=== PATIENT | male | born 1995 | race Two or more races ===

== ENCOUNTER 2016-06-01 14:03 | Emergency (ER) | payer OTHER ==
[~2016-06-01] VITALS: Ht 180.3 cm; Wt 82.6 kg
[~2016-06-01 14:03] MED LIST: AUGMENTIN 875-1 EAC1 ORAL; CEPHALEXIN500 MG ORAL; DOXYCYCLINE MO100 MG ORAL; IBUPROFEN600 MG ORAL; VIBRAMYCIN100 MG ORAL
[2016-06-01] MEDS ORDERED: CEPHALEXIN500 MG ORAL (14:59)
[2016-06-01 15:08] VITALS: BP 115/74
--- NOTE | 2016-06-02 23:00 | Emergency Room Report ---
History of Present Illness General Chief Complaint: Skin Rash/Abscess Source: Patient Present Illness HPI The patient is a 20-year-old male presenting with possible insect bite to the left elbow. The patient states that he noticed redness and pain to the area this morning. The patient did not see any insects. Pain is described as an 8/ 10 dull ache which does not radiate. Pain worse with touch and movement of the elbow. The patient denies any other symptoms including fever, chills, N, V, fatigue, CP, SOB Allergies: Coded Allergies: No Known Allergies (Unverified , 07/03/15) Patient History Past Medical History: see triage record Pertinent Family History: none Reviewed Nursing Documentation: PMH: Agreed, PSxH: Agreed Nursing Documentation-PMH Past Medical History: No Stated History Review of Systems All Other Systems: negative except mentioned in HPI Physical Exam Vital Signs Date Time Temp Pulse Resp B/P Pulse Ox O2 Delivery O2 Flow Rate FiO2 06/01/16 15:08 97.7 14 115/74 98 Room Air 06/01/16 15:08 73 Sp02 EP Interpretation: reviewed, normal General Appearance: no apparent distress, alert, GCS 15, non-toxic Head: normocephalic, atraumatic Eyes: bilateral eye PERRL, bilateral eye normal inspection Musculoskeletal: digits/nails normal, normal range of motion, tender - over olecranon Neurologic: alert, oriented x3, responsive, motor strength/tone normal, sensory intact, speech normal Psychiatric: judgement/insight normal, memory normal, mood/affect normal, no suicidal/homicidal ideation Skin: normal color, no rash, well hydrated, normal turgor, other - There is erythema over the olecranon. Hot to touch Lymphatic: no adenopathy Medical Decision Making PA Attestation Dr. Dickinson is my supervising physician. Patient management was discussed with my supervising physician Diagnostic Impression: Primary Impression: Cellulitis ER Course The patient is a 20-year-old male presenting with possible insect bite to the left elbow. Ddx considered include but not limited to insect bite, contact dermatitis, eczema, cellulitis Physical exam: Vitals within normal limits. Afebrile. No apparent distress Left elbow: There is 4 cm in diameter erythema over the olecranon. No fluctuance. Tender to palpation. The patient will be discharged home with a prescription for Keflex. ER precautions are given Last Vital Signs Date Time Temp Pulse Resp B/P Pulse Ox O2 Delivery O2 Flow Rate FiO2 06/01/16 15:08 73 14 115/74 98 Room Air 06/01/16 15:08 97.7 Status: improved Disposition: HOME, SELF-CARE Condition: Improved Scripts Cephalexin* (KEFLEX*) 500 Mg Capsule 500 MG ORAL EVERY 12 HOURS, #20 CAP 0 Refills Prov: BRANDY DOSHI 06/01/16 Referrals: [facility] (PCP) Patient Instructions: Cellulitis Additional Instructions: I discussed my findings with the patient. All questions and concerns have been answered. Treatment and medication compliance have been addressed. I advised the patient that they need to follow up with PMD in 3-5 days. Return to ED if symptoms worsen, new symptoms arise, or if needed for any reason. Patient verbalized understanding of discharge instructions. BRANDY DOSHI Jun 02, 2016 23:00
== END 2016-06-01 15:08 | disposition home or self-care (01) ==
LOC: EMR 14:55
DX: L03.114 Cellulitis of left upper limb (principal)
CPT/HCPCS: 10060

== ENCOUNTER 2016-06-01 22:32 | Emergency (ER) | payer OTHER ==
[~2016-06-01] VITALS: Ht 180.3 cm; Wt 86.2 kg
[2016-06-01] MEDS ORDERED: Vancomycin 1.5 GM in D5W 325 ML IVPB SCH (23:00)
[2016-06-01] MEDS ORDERED: HYDROmorphone 1mg/ml Carpuject IVP ONE (23:00)
[2016-06-01] MEDS ORDERED: Vancomycin 1gm inj IVPB ONE ×2 (23:22→23:23)
[2016-06-01] MEDS ORDERED: Vancomycin 1.5gm/D5W 300ml 300 ML IVPB ONE (23:28)
[2016-06-01 23:33] LABS: BASOPHILS % (AUTO) 0.8 % (0.0-2.0); EOSINOPHILS % (AUTO) 2.7 % (0.0-3.0); LYMPHOCYTES % (AUTO) 20.4 % (20.0-45.0); MEAN CORPUSCULAR HEMOGLOBIN 33.3 PG (27.0-31.0); MEAN CORPUSCULAR HGB CONC 36.5 G/DL (32.0-36.0); MEAN CORPUSCULAR VOLUME 91 FL (80-99); MEAN PLATELET VOLUME 11.7 FL (6.5-10.1); MONOCYTES % (AUTO) 7.5 % (1.0-10.0); NEUTROPHILS % (AUTO) 68.7 % (45.0-75.0); PLATELET COUNT 158 K/UL (150-450); RED BLOOD COUNT 5.12 M/UL (4.70-6.10); RED CELL DISTRIBUTION WIDTH 12.1 % (11.6-14.8); WHITE BLOOD COUNT 13.5 K/UL (4.8-10.8)
[2016-06-01 23:41] LABS: ANION GAP 14 (5-15); CALCIUM 9.7 mg/dL (8.6-10.2); CARBON DIOXIDE 26 mEQ/L (20-30); CHLORIDE 100 mEQ/L (98-107); CREATININE 0.8 mg/dL (0.7-1.2); GLOMERULAR FILTRATION RATE > 60 mL/min (>60); HEMOLYSIS 7; POTASSIUM 3.7 mEQ/L (3.4-4.9); SODIUM 140 mEQ/L (135-145)
--- NOTE | 2016-06-01 23:51 | Emergency Room Report ---
History of Present Illness General Chief Complaint: Skin Rash/Abscess Source: Patient Present Illness HPI This is a 20-year-old male who is right-hand dominant. He presents with left elbow pain. He had a small pimple on his left elbow. He tried to pop it. This was 3 days ago. Today he had redness and has subjective fever and chills. He came here and was prescribed Keflex. He said he took 2 doses already. Now pain is much worse. Redness to the same but swelling is worse. Cancer denies elbow. Pain is 10 out of 10. Denies any other complaint. No drainage. Allergies: Coded Allergies: No Known Allergies (Unverified , 07/03/15) Patient History Past Medical History: see triage record, old chart reviewed Past Surgical History: none Pertinent Family History: none Social History: Denies: smoking Immunizations: other Reviewed Nursing Documentation: PMH: Agreed, PSxH: Agreed Nursing Documentation-PMH Past Medical History: No Stated History Review of Systems Constitutional: Reports: chills, fever Eye: Denies: blurred vision, eye pain ENT: Denies: ear pain, nose congestion, throat swelling Respiratory: Denies: cough, shortness of breath Cardiovascular: Denies: chest pain, palpitations Gastrointestinal: Denies: abdominal pain, diarrhea, nausea, vomiting Musculoskeletal: Reports: joint pain, Denies: back pain Skin: Denies: rash Neurological: Denies: headache, numbness Endocrine: Denies: increased thirst, increased urine Hematologic/Lymphatic: Denies: easy bruising All Other Systems: negative except mentioned in HPI Physical Exam Vital Signs Date Time Temp Pulse Resp B/P Pulse Ox O2 Delivery O2 Flow Rate FiO2 06/01/16 22:42 97.7 115 17 132/79 98 Room Air vitals with tachycardia Sp02 EP Interpretation: reviewed, normal General Appearance: well appearing, alert, mild distress Head: normocephalic, atraumatic Eyes: bilateral eye EOMI, bilateral eye PERRL ENT: hearing grossly normal, normal pharynx Neck: full range of motion, supple, no meningismus Respiratory: chest non-tender, lungs clear, normal breath sounds Cardiovascular #1: regular rate, rhythm, no murmur Gastrointestinal: normal bowel sounds, non tender, no mass, no organomegaly, no bruit, non-distended Musculoskeletal: back normal, gait/station normal, other - Left elbow: There is a small fluctuant area of the olecranon. About 1 cm. Has a scab centrally. He has surrounding erythema measuring about 5 cm. Unable to extend his elbow to 180. Warm to the touch. Neurologic: alert, oriented x3 Psychiatric: mood/affect normal Skin: warm/dry Procedures Incision and Drainage Incision and Drainage : Consent: Verbal Site: Left elbow Blade Size: 11 I & D Procedure: betadine prep, sterile drapes applied, sterile dressing applied, gauze wick placed Wound Location: upper extremity Anesthesia: Lidocaine w/ Epi Volume Anesthetic (ccs): 2 Patient Tolerated: Well Complications: None Progress Area clean with Betadine. Local anesthetic 1% lidocaine with epinephrine. I made a 2 cm incision. There was small amount of discharge. This was about 1 mL. Wound irrigated and packed. Patient tolerated procedure without any problem. He is able to straighten her elbow fully. Medical Decision Making Diagnostic Impression: Primary Impression: Cellulitis of left elbow Additional Impression: Abscess, elbow ER Course Patient present with abscess and cellulitis of the elbow. He felt outpatient therapy. Most likely MRSA in resistant to Keflex. After I&D he is able to straighten his elbow fully. This decreased the risks of septic joint. Antibiotic started. Because he failed outpatient therapy he warrant admission versus transfer for further IV antibiotics. Laboratory Tests Test 06/01/16 23:15 White Blood Count 13.5 K/UL (4.8-10.8) H Red Blood Count 5.12 M/UL (4.70-6.10) Hemoglobin 17.1 G/DL (14.2-18.0) Hematocrit 46.7 % (42.0-52.0) Mean Corpuscular Volume 91 FL (80-99) Mean Corpuscular Hemoglobin 33.3 PG (27.0-31.0) H Mean Corpuscular Hemoglobin Concent 36.5 G/DL (32.0-36.0) H Red Cell Distribution Width 12.1 % (11.6-14.8) Platelet Count 158 K/UL (150-450) Mean Platelet Volume 11.7 FL (6.5-10.1) H Neutrophils (%) (Auto) 68.7 % (45.0-75.0) Lymphocytes (%) (Auto) 20.4 % (20.0-45.0) Monocytes (%) (Auto) 7.5 % (1.0-10.0) Eosinophils (%) (Auto) 2.7 % (0.0-3.0) Basophils (%) (Auto) 0.8 % (0.0-2.0) Sodium Level Pending Potassium Level Pending Chloride Level Pending Carbon Dioxide Level Pending Blood Urea Nitrogen Pending Creatinine Pending Estimat Glomerular Filtration Rate Pending Glucose Level Pending Calcium Level Pending Lab Results Impression labs with leukocytosis Other X-Ray Diagnostic Results Other X-Ray Diagnostic Results : X-Ray Ordered: X-ray elbow, left Date: Jun 01, 2016 Time: 23:51 EP Interpretation: Yes Findings: no fractures, no dislocation, no soft tissue swelling Number of Views: 3 Last Vital Signs Date Time Temp Pulse Resp B/P Pulse Ox O2 Delivery O2 Flow Rate FiO2 06/01/16 22:42 97.7 115 17 132/79 98 Room Air Status: improved Disposition: XFER SHT-TRM HOSP Condition: Serious Referrals: [facility]ERR[facility] (PCP) YOSELIN GARCES M.D. Jun 01, 2016 23:51
[2016-06-02] MEDS ORDERED: HYDROmorphone 1mg/ml Carpuject IVP ONE
[2016-06-02 00:16] VITALS: BP 136/78
[2016-06-02 01:33] VITALS: BP 134/76
--- NOTE | 2016-06-02 13:45 | Diagnostic Imaging Report ---
Indications:Pain Technique: Three or 4 views of the left elbow Comparison: None Findings:No effusion. No acute fractures. No dislocations. Joint spaces are preserved Impression:Negative
== END 2016-06-02 01:34 | disposition short-term general hospital (02) ==
LOC: EMR 23:08
DX: L03.114 Cellulitis of left upper limb (principal); L02.414 Cutaneous abscess of left upper limb
CPT/HCPCS: 10060; 36415; 73080; 80048; 85025; 87070; 87181; 87205; 96374; 96375; 99284; J1170; J2405; J3370

== ENCOUNTER 2016-07-25 00:40 | Emergency (ER) | payer MEDICAID, OTHER ==
[~2016-07-25] VITALS: Ht 180.3 cm; Wt 82.6 kg
[2016-07-25] MEDS ORDERED: Ketorolac 30mg Inj IV ONE (01:15)
[2016-07-25 01:25] LABS: APPEARANCE,URINE CLEAR; KETONES,URINE 4+ (NEGATIVE); LEUKOCYTE ESTERASE ,URINE NEGATIVE (NEGATIVE); NITRITE,URINE NEGATIVE (NEGATIVE); PH,URINE 5 (4.5-8.0); PROTEIN,URINE 1+ (NEGATIVE); UROBILINOGEN,URINE NORMAL MG/DL (0.0-1.0)
[2016-07-25 01:29] LABS: BASOPHILS % (AUTO) 0.6 % (0.0-2.0); EOSINOPHILS % (AUTO) 0.3 % (0.0-3.0); LYMPHOCYTES % (AUTO) 8.5 % (20.0-45.0); MEAN CORPUSCULAR HEMOGLOBIN 30.7 PG (27.0-31.0); MEAN CORPUSCULAR HGB CONC 34.7 G/DL (32.0-36.0); MEAN CORPUSCULAR VOLUME 89 FL (80-99); MONOCYTES % (AUTO) 9.1 % (1.0-10.0); NEUTROPHILS % (AUTO) 81.5 % (45.0-75.0); PLATELET COUNT 139 K/UL (150-450); RED BLOOD COUNT 5.78 M/UL (4.70-6.10); RED CELL DISTRIBUTION WIDTH 11.8 % (11.6-14.8)
[2016-07-25 01:37] LABS: BACTERIA,URINE FEW /HPF; MUCUS,URINE MODERATE /LPF (NONE/OCC); SQUAMOUS EPITHELIAL CELL,UR FEW /LPF (NONE/OCC)
[2016-07-25 01:40] LABS: ANION GAP 17 (5-15); CALCIUM 8.6 mg/dL (8.6-10.2); CARBON DIOXIDE 25 mEQ/L (20-30); CHLORIDE 91 mEQ/L (98-107); CREATININE 0.9 mg/dL (0.7-1.2); GLOMERULAR FILTRATION RATE > 60 mL/min (>60); HEMOLYSIS 7; POTASSIUM 3.5 mEQ/L (3.4-4.9); SODIUM 133 mEQ/L (135-145)
[2016-07-25 01:57] VITALS: BP 124/71
[2016-07-25] MEDS ORDERED: IBUPROFEN600 MG ORAL (02:01)
[2016-07-25] MEDS ORDERED: ZOFRAN4 MG ORAL (02:01)
--- NOTE | 2016-07-25 02:02 | Emergency Room Report ---
History of Present Illness General Chief Complaint: Abdominal Pain Source: Patient Present Illness HPI Is a 20-year-old male with no past medical history. He presents with chief complaint of abdominal pain with nausea vomiting and diarrhea. Onset yesterday. Unable to keep anything down. No fever or chills. Vomiting is nonbloody nonbilious. Diarrhea is watery. Allergies: Coded Allergies: No Known Allergies (Unverified , 07/03/15) Patient History Past Medical History: none Past Surgical History: none Pertinent Family History: none Social History: Denies: smoking Immunizations: other Reviewed Nursing Documentation: PMH: Agreed, PSxH: Agreed Nursing Documentation-PMH Past Medical History: No Stated History Review of Systems Eye: Denies: blurred vision, eye pain ENT: Denies: ear pain, nose congestion, throat swelling Respiratory: Denies: cough, shortness of breath Cardiovascular: Denies: chest pain, palpitations Gastrointestinal: Reports: abdominal pain, diarrhea, nausea, vomiting Musculoskeletal: Denies: back pain, joint pain Skin: Denies: rash Neurological: Denies: headache, numbness Endocrine: Denies: increased thirst, increased urine Hematologic/Lymphatic: Denies: easy bruising All Other Systems: negative except mentioned in HPI Physical Exam Vital Signs Date Time Temp Pulse Resp B/P Pulse Ox O2 Delivery O2 Flow Rate FiO2 07/25/16 00:53 98.1 111 20 130/76 99 Room Air vitals with tachycardia Sp02 EP Interpretation: reviewed, normal General Appearance: well appearing, no apparent distress, alert Head: normocephalic, atraumatic Eyes: bilateral eye EOMI, bilateral eye PERRL ENT: hearing grossly normal, normal pharynx Neck: full range of motion, supple, no meningismus Respiratory: chest non-tender, lungs clear, normal breath sounds Cardiovascular #1: regular rate, rhythm, no murmur Gastrointestinal: normal bowel sounds, no mass, no organomegaly, no bruit, non- distended, tenderness - Mild Musculoskeletal: back normal, gait/station normal, normal range of motion Neurologic: alert, oriented x3 Psychiatric: mood/affect normal Skin: warm/dry Medical Decision Making Diagnostic Impression: Primary Impression: Abdominal pain of unknown etiology Additional Impressions: Nausea vomiting and diarrhea Dehydration ER Course Patient with abdominal pain. Pain better now. He is no longer vomiting. He is little dehydrated. [place] better now. no evidence of obstruction or acute abdomen. We'll discharge him. Lab Results Impression labs unremarkable Last Vital Signs Date Time Temp Pulse Resp B/P Pulse Ox O2 Delivery O2 Flow Rate FiO2 07/25/16 00:53 98.1 111 20 130/76 99 Room Air Status: improved Disposition: HOME, SELF-CARE Condition: Stable Scripts Ibuprofen* (MOTRIN*) 600 Mg Tablet 600 MG ORAL Q6H Y for For Pain, #20 TAB Prov: YOSELIN GARCES M.D. 07/25/16 Ondansetron (Zofran) 4 Mg Tablet 4 MG ORAL Q6H Y for Nausea & Vomiting, #10 TAB 0 Refills Prov: YOSELIN GARCES M.D. 07/25/16 Patient Instructions: Viral Gastroenteritis, Adult Additional Instructions: Followup with your DrJoanie in 2-3 days. Return if symptom worsen. YOSELIN GARCES M.D. Jul 25, 2016 02:02
[2016-07-25 02:16] VITALS: BP 124/71
[2016-07-26] MEDS ORDERED: NKM (01:18)
[2016-07-26] MEDS ORDERED: ZOFRAN ODT4 MG ORAL (03:03)
[2016-07-26] MEDS ORDERED: BENTYL10 MG ORAL (03:03)
[2016-07-26] MEDS ORDERED: RANITIDINE HCL150 MG ORAL (03:03)
== END 2016-07-25 02:16 | disposition home or self-care (01) ==
LOC: EMR 02:14
DX: R10.9 Unspecified abdominal pain (principal); R11.2 Nausea with vomiting, unspecified; E86.0 Dehydration
CPT/HCPCS: 36415; 80048; 81003; 85025; 96374; 96375; 99284; J1885; J2405

== ENCOUNTER 2016-07-25 23:59 | Emergency (ER) | payer MEDICAID ==
[~2016-07-25] VITALS: Ht 180.3 cm; Wt 82.6 kg
[~2016-07-25 23:59] MED LIST changes: +ZOFRAN4 MG ORAL
[2016-07-26] MEDS ORDERED: Morphine Sulfate 4mg/ml Inj IVP ONE ×2 (00:30→03:15)
[2016-07-26 00:39] LABS: APPEARANCE,URINE CLEAR; KETONES,URINE 3+ (NEGATIVE); LEUKOCYTE ESTERASE ,URINE 1+ (NEGATIVE); NITRITE,URINE NEGATIVE (NEGATIVE); PH,URINE 6 (4.5-8.0); PROTEIN,URINE 1+ (NEGATIVE); UROBILINOGEN,URINE NORMAL MG/DL (0.0-1.0)
[2016-07-26 00:50] LABS: BASOPHILS % (AUTO) 1.6 % (0.0-2.0); EOSINOPHILS % (AUTO) 1.4 % (0.0-3.0); MEAN CORPUSCULAR HEMOGLOBIN 30.8 PG (27.0-31.0); MEAN CORPUSCULAR HGB CONC 35.3 G/DL (32.0-36.0); MEAN CORPUSCULAR VOLUME 87 FL (80-99); MEAN PLATELET VOLUME 10.8 FL (6.5-10.1); MONOCYTES % (AUTO) 15.2 % (1.0-10.0); NEUTROPHILS % (AUTO) 61.8 % (45.0-75.0); PLATELET COUNT 132 K/UL (150-450); RED BLOOD COUNT 5.07 M/UL (4.70-6.10); RED CELL DISTRIBUTION WIDTH 11.5 % (11.6-14.8); WHITE BLOOD COUNT 6.1 K/UL (4.8-10.8)
[2016-07-26 01:07] LABS: ALANINE AMINOTRANSFERASE 31 U/L (3-41); ALBUMIN/GLOBULIN RATIO 1.4 (1.0-2.7); ANION GAP 17 (5-15); ASPARTATE AMINO TRANSFERASE 21 U/L (5-40); CALCIUM 8.4 mg/dL (8.6-10.2); CARBON DIOXIDE 24 mEQ/L (20-30); CHLORIDE 95 mEQ/L (98-107); CREATININE 0.8 mg/dL (0.7-1.2); GLOMERULAR FILTRATION RATE > 60 mL/min (>60); HEMOLYSIS 7; LIPASE 29 U/L (< 60); POTASSIUM 3.3 mEQ/L (3.4-4.9); SODIUM 136 mEQ/L (135-145); TOTAL PROTEIN 6.5 g/dL (6.6-8.7)
[2016-07-26 01:18] VITALS: BP 133/75
[2016-07-26] MEDS ORDERED: NKM (01:18)
[2016-07-26 01:32] LABS: BACTERIA,URINE FEW /HPF; MUCUS,URINE MODERATE /LPF (NONE/OCC); RBC,URINE 0-2 /HPF (0 - 0); SQUAMOUS EPITHELIAL CELL,UR FEW /LPF (NONE/OCC)
[2016-07-26] MEDS ORDERED: ZOFRAN ODT4 MG ORAL (03:03)
[2016-07-26] MEDS ORDERED: BENTYL10 MG ORAL (03:03)
[2016-07-26] MEDS ORDERED: RANITIDINE HCL150 MG ORAL (03:03)
[2016-07-26 03:12] VITALS: BP 115/75
[2016-07-26] MEDS ORDERED: Ketorolac 30mg Inj IV ONE (03:15)
[2016-07-26 03:16] VITALS: BP 115/75
--- NOTE | 2016-07-26 03:24 | Emergency Room Report ---
History of Present Illness General Chief Complaint: Abdominal Pain Source: Patient Present Illness HPI 20-year-old male presents ED for evaluation. Patient is here complaining of abdominal pain with vomiting. States symptoms started last Tuesday. Was here last night for similar presentation. Had workup and given pain medications and subsequently discharged. Patient is here because pain is persisting. Pain is sharp. 10 Out of 10. Noted to the right side of abdomen. Denies fevers or chills. Denies chest pain or shortness of breath. Denies sick contacts or recent travel. No aggravating relieving factors. Denies any other associated symptom Allergies: Coded Allergies: No Known Allergies (Unverified , 07/03/15) Patient History Past Medical History: none Past Surgical History: none Pertinent Family History: none Social History: Denies: alcohol use, drug use, smoking Immunizations: UTD Reviewed Nursing Documentation: PMH: Agreed, PSxH: Agreed Nursing Documentation-PMH Past Medical History: No Stated History Review of Systems All Other Systems: negative except mentioned in HPI Physical Exam Vital Signs Date Time Temp Pulse Resp B/P Pulse Ox O2 Delivery O2 Flow Rate FiO2 07/26/16 00:05 97.9 74 18 116/73 100 Room Air Sp02 EP Interpretation: reviewed, normal General Appearance: no apparent distress, alert, GCS 15, non-toxic Head: normocephalic Eyes: bilateral eye PERRL, bilateral eye normal inspection ENT: hearing grossly normal, normal pharynx, no angioedema, normal voice Neck: normal inspection Respiratory: normal inspection Cardiovascular #1: normal inspection Gastrointestinal: normal bowel sounds, soft, non-distended, no guarding, no rebound, tenderness - Right sided Rectal: deferred Genitourinary: no CVA tenderness Musculoskeletal: normal inspection Neurologic: alert, oriented x3, responsive, motor strength/tone normal, sensory intact, speech normal Psychiatric: normal inspection Skin: normal inspection Lymphatic: normal inspection Medical Decision Making Diagnostic Impression: Primary Impression: Gastroenteritis and colitis, viral ER Course Hospital Course 20-year-old male presents to ED complaining of right-sided abdominal pain and vomiting Differential diagnosis includes-appendicitis, cholecystitis, small bowel obstruction, gastritis, Clinical course Patient placed on stretcher. After initial history and physical I ordered labs , IV fluids, pain medications and CT scan Labs - no leukocytosis, electrolytes okay, LFTs normal, UA unremarkable CT scan shows no acute pathology, no evidence of appendicitis. Some inflammation surrounding the ascending colon likely colitis Reassurance given to the patient. Patient tolerating by mouth challenge in ED I feel this is a highly complex case requiring extensive working including EKG/ Rhythm strip, Xray/CT/US, Blood/urine lab work, repeat exams while in ED, and administration of strong opiates/narcotics for pain control, admission to hospital or close patient follow up. Diagnosis - gastroenteritis and colitis viral Stable and discharged to home prescription for Zantac, Bentyl, Zofran. Followup with PMD. Return to ED if symptoms recur or worsen Labs Test 07/26/16 00:17 07/26/16 00:35 Urine Color Yellow Urine Appearance Clear Urine pH 6 (4.5-8.0) Urine Specific [place] 1.015 (1.005-1.035) Urine Protein 1+ (NEGATIVE) Urine Glucose (UA) Negative (NEGATIVE) Urine Ketones 3+ (NEGATIVE) Urine Occult Blood Negative (NEGATIVE) Urine Nitrite Negative (NEGATIVE) Urine Bilirubin Negative (NEGATIVE) Urine Urobilinogen Normal MG/DL (0.0-1.0) Urine Leukocyte Esterase 1+ (NEGATIVE) Urine RBC 0-2 /HPF (0 - 0) Urine WBC 5-10 /HPF (0 - 0) Urine Squamous Epithelial Cells Few /LPF (NONE/OCC) Urine Bacteria Few /HPF (NONE) Urine Mucus Moderate /LPF (NONE/OCC) White Blood Count 6.1 K/UL (4.8-10.8) Red Blood Count 5.07 M/UL (4.70-6.10) Hemoglobin 15.6 G/DL (14.2-18.0) Hematocrit 44.3 % (42.0-52.0) Mean Corpuscular Volume 87 FL (80-99) Mean Corpuscular Hemoglobin 30.8 PG (27.0-31.0) Mean Corpuscular Hemoglobin Concent 35.3 G/DL (32.0-36.0) Red Cell Distribution Width 11.5 % (11.6-14.8) Platelet Count 132 K/UL (150-450) Mean Platelet Volume 10.8 FL (6.5-10.1) Neutrophils (%) (Auto) 61.8 % (45.0-75.0) Lymphocytes (%) (Auto) 20.0 % (20.0-45.0) Monocytes (%) (Auto) 15.2 % (1.0-10.0) Eosinophils (%) (Auto) 1.4 % (0.0-3.0) Basophils (%) (Auto) 1.6 % (0.0-2.0) Sodium Level 136 mEQ/L (135-145) Potassium Level 3.3 mEQ/L (3.4-4.9) Chloride Level 95 mEQ/L (98-107) Carbon Dioxide Level 24 mEQ/L (20-30) Anion Gap 17 (5-15) Blood Urea Nitrogen 9 mg/dL (7-23) Creatinine 0.8 mg/dL (0.7-1.2) Estimat Glomerular Filtration Rate > 60 mL/min (>60) Glucose Level 113 mg/dL (74-106) Calcium Level 8.4 mg/dL (8.6-10.2) Total Bilirubin 0.3 mg/dL (0.0-1.2) Aspartate Amino Transf (AST/SGOT) 21 U/L (5-40) Alanine Aminotransferase (ALT/SGPT) 31 U/L (3-41) Alkaline Phosphatase 41 U/L (40-129) Total Protein 6.5 g/dL (6.6-8.7) Albumin 3.8 g/dL (3.5-5.2) Globulin 2.7 g/dL Albumin/Globulin Ratio 1.4 (1.0-2.7) Lipase 29 U/L (< 60) CT/MRI/US Diagnostic Results CT/MRI/US Diagnostic Results : Imaging Test Ordered: CT A/P Impression some inflammation surrounding ascending colon - likley colitis. no e/o appendicits Last Vital Signs Date Time Temp Pulse Resp B/P Pulse Ox O2 Delivery O2 Flow Rate FiO2 07/26/16 03:16 97.9 77 17 115/75 100 Room Air Status: improved Disposition: HOME, SELF-CARE Condition: Stable Scripts Ondansetron Odt* (ZOFRAN ODT*) 4 Mg Tab.rapdis 4 MG ORAL Q6H Y for Nausea & Vomiting, #30 TAB 0 Refills Prov: SANJAY JAUREGUI M.D. 07/26/16 Ranitidine Hcl* (ZANTAC*) 150 Mg Tablet 150 MG ORAL TWICE A DAY, #30 TAB Prov: SANJAY JAUREGUI M.D. 07/26/16 Dicyclomine Hcl* (BENTYL*) 10 Mg Capsule 10 MG ORAL FOUR TIMES A DAY, #20 CAP Prov: SANJAY JAUREGUI M.D. 07/26/16 Patient Instructions: Viral Gastroenteritis, Adult SANJAY JAUREGUI M.D. Jul 26, 2016 03:24
--- NOTE | 2016-07-26 11:48 | Diagnostic Imaging Report ---
Clinical Indication: Abdominal pain Technique: No oral contrast utilized, per emergency room physician request IV administration nonionic contrast. Venous phase spiral acquisition obtained through the abdomen and pelvis. Multiplanar reconstructions were generated. Total dose length product 780 mGycm. CTDIvol(s) 15 mGy Comparison: None Findings: The appendix is normal. No evidence of diverticulosis or diverticulitis. Small bowel loops are diffusely prominent, but contrast is seen all the way into the colon. No free or loculated intraperitoneal air or fluid. Distal esophagus, stomach, duodenum are unremarkable. The liver is diffusely mildly hypoattenuating, consistent with fatty change. No focal abnormality. The, bile ducts, pancreas, spleen, adrenals, kidneys are unremarkable. No retroperitoneal or mesenteric mass or adenopathy. No pelvic mass or adenopathy. Impression: No acute process Mild hepatic fatty change This agrees with the preliminary interpretation provided overnight by [facility] teleradiology service. The CT scanner at [facility] is accredited by the [employer] and the scans are performed using protocols designed to limit radiation exposure to as low as reasonably achievable to attain images of sufficient resolution adequate for diagnostic evaluation.
== END 2016-07-26 03:16 | disposition home or self-care (01) ==
LOC: EMR 07-26 00:34
DX: A08.4 Viral intestinal infection, unspecified (principal); K52.9 Noninfective gastroenteritis and colitis, unspecified
CPT/HCPCS: 36415; 74177; 80053; 81003; 82962; 83690; 85025; 96360; 96374; 96375; 99284; J1885; J2270; J2405; Q9967

== ENCOUNTER 2017-02-15 02:49 | Emergency (ER) | payer MEDICAID ==
[~2017-02-15] VITALS: Ht 180.3 cm; Wt 80.7 kg
[~2017-02-15 02:49] MED LIST changes: +BENTYL10 MG ORAL; +NKM; +RANITIDINE HCL150 MG ORAL; +ZOFRAN ODT4 MG ORAL
[2017-02-15 03:15] VITALS: BP 137/85
[2017-02-15] MEDS ORDERED: Tetracaine 0.5% Opth 4ml Soln RIGHT EYE ONE (03:30)
[2017-02-15] MEDS ORDERED: Tetracaine 0.5% Opth 4ml Soln LEFT EYE ONE (03:30)
[2017-02-15] MEDS ORDERED: Fluorescein Strips BOTH EYES ONE (03:30)
[2017-02-15] MEDS ORDERED: IBUPROFEN600 MG ORAL (03:45)
[2017-02-15] MEDS ORDERED: ACETAMINOPHEN-1 EAC1 ORAL (03:45)
[2017-02-15] MEDS ORDERED: GENTAMICIN SUL3.5 GM OP (03:45)
--- NOTE | 2017-02-15 03:47 | Emergency Room Report ---
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 Just prior to arrival patient began having increased pain and irritation to bilateral his Denies any change in vision denies any chest pain or shortness of breath he has a mild headache Discomfort and pain is 8/10 Patient has photosensitivity as well Patient reports that he had his mask off during the welding at several times Allergies: Coded Allergies: No Known Allergies (Unverified , 07/03/15) Patient History Past Medical History: see triage record Pertinent Family History: none Reviewed Nursing Documentation: PMH: Agreed, PSxH: Agreed Nursing Documentation-PMH Past Medical History: No Stated History Review of Systems All Other Systems: negative except mentioned in HPI Physical Exam Vital Signs Date Time Temp Pulse Resp B/P (MAP) Pulse Ox O2 Delivery O2 Flow Rate FiO2 02/15/17 03:06 97.9 77 18 137/85 99 Room Air Sp02 EP Interpretation: reviewed, normal General Appearance: mild distress - in pain Head: normocephalic, atraumatic Eyes: bilateral eye other - Bilateral conjunctival erythema, no signs of any fluorescein uptake ENT: normal pharynx, no angioedema Neck: supple, thyroid normal Respiratory: lungs clear Cardiovascular #1: regular rate, rhythm, no edema Gastrointestinal: non tender, soft Musculoskeletal: normal inspection Neurologic: normal inspection, alert, oriented x3 Skin: normal color, no rash Lymphatic: no adenopathy Medical Decision Making Diagnostic Impression: Primary Impression: Eye problem Additional Impression: welding injury ER Course Patient's eye exam does not reveal any ulcerations or open wounds Patient did better with tetracaine evaluation and fluorescein stain Patient was provided pain medication as well And requires close ophthalmology workup Last Vital Signs Date Time Temp Pulse Resp B/P (MAP) Pulse Ox O2 Delivery O2 Flow Rate FiO2 02/15/17 03:06 97.9 77 18 137/85 99 Room Air Status: improved Disposition: HOME, SELF-CARE Condition: Improved Scripts Ibuprofen* (MOTRIN*) 600 Mg Tablet 600 MG ORAL Q8H Y for For Pain, #30 TAB 0 Refills Prov: JEAN-CLAUDE SPANN DAbhinav 02/15/17 Acetaminophen With Codeine (T#3) (TYLENOL #3 TAB*) Y Tab 1 TAB ORAL Q8H Y for For Pain, #15 TAB Prov: JEAN-CLAUDE SPANN D.O. 02/15/17 Gentamicin Sulfate* (GENTAMICIN SULFATE*) 3.5 Gm Oint...g. 3.5 GM OP THREE TIMES A DAY for 7 Days, GM Prov: JEAN-CLAUDE SPANN D.O. 02/15/17 Patient Instructions: Chemical Conjunctivitis Additional Instructions: Patient is provided with the discharge instructions notified to follow up with primary doctor in the next 2-3 days otherwise return to the er with any worsening symptoms. Please note that this report is being documented using [email or web address] technology. This can lead to erroneous entry secondary to incorrect interpretation by the dictating instrument. JEAN-CLAUDE SPANN D.O. Feb 15, 2017 03:47
[2017-02-15 04:02] VITALS: BP 137/85
== END 2017-02-15 04:02 | disposition home or self-care (01) ==
LOC: EMR 03:28
DX: H57.8 Other specified disorders of eye and adnexa (principal); S05.8X2A Other injuries of left eye and orbit, initial encounter; S05.8X1A Other injuries of right eye and orbit, initial encounter; X58.XXXA Exposure to other specified factors, initial encounter; Y92.89 Other specified places as the place of occurrence of the external cause
CPT/HCPCS: 99284

== ENCOUNTER 2017-09-04 03:56 | Emergency (ER) | payer MEDICAID ==
[~2017-09-04] VITALS: Ht 180.3 cm; Wt 78.0 kg
[~2017-09-04 03:56] MED LIST changes: +ACETAMINOPHEN-1 EAC1 ORAL; +GENTAMICIN SUL3.5 GM OP
[2017-09-04] MEDS ORDERED: NKM (04:00)
[2017-09-04] MEDS ORDERED: DOXYCYCLINE MO100 MG ORAL (04:14)
[2017-09-04] MEDS ORDERED: Lidocaine 1% MPF 10mg/ml 5ml INJ ONE (04:15)
--- NOTE | 2017-09-04 04:18 | Emergency Room Report ---
History of Present Illness General Chief Complaint: Male Urogenital Problems Source: Patient Present Illness HPI Patient is a 21-year-old male who presented after increased urethral discharge. Patient reported having recent unprotected sex. He stated that he had subsequently began having increased penile discharge. He denies any fever he denies any testicular pain or swelling. Allergies: Coded Allergies: No Known Allergies (Unverified , 09/04/17) Patient History Past Medical History: see triage record Reviewed Nursing Documentation: PMH: Agreed; PSxH: Agreed Nursing Documentation-PMH Past Medical History: No Stated History Review of Systems All Other Systems: negative except mentioned in HPI Physical Exam Vital Signs Date Time Temp Pulse Resp B/P (MAP) Pulse Ox O2 Delivery O2 Flow Rate FiO2 09/04/17 03:57 98.1 74 16 111/69 97 Room Air 98.1 General Appearance: well appearing, no apparent distress, alert, GCS 15 Head: normocephalic, atraumatic ENT: hearing grossly normal, normal voice Neck: full range of motion, supple Respiratory: no respiratory distress, speaking full sentences Cardiovascular #1: normal inspection, no edema Musculoskeletal: normal inspection, back normal, no calf tenderness Neurologic: normal inspection, alert, oriented x3, normal gait Psychiatric: mood/affect normal Skin: no rash Medical Decision Making Diagnostic Impression: Primary Impression: Urethritis, nonspecific ER Course Patient presented for dysuria. Differential diagnosis included was not limited to appendicitis, urinary tract infection, urethritis, herpes among others. The patient was empirically treated for gonorrhea and chlamydia. The patient is advised follow-up with the community clinic for STD testing. The patient is advised to follow up with primary care doctor in 1-2 days. Patient is advised to return if any worsening condition or if any changes in status that are concerning. This report is dictated with [employer] soup mixer software which may occasionally lead to discrepancies related to use of this software. Last Vital Signs Date Time Temp Pulse Resp B/P (MAP) Pulse Ox O2 Delivery O2 Flow Rate FiO2 09/04/17 03:57 98.1 74 16 111/69 97 Room Air 98.1 Status: improved Disposition: HOME, SELF-CARE Condition: Stable Scripts Doxycycline Monohydrate* (DOXYCYCLINE MONOHYDRATE*) 100 Mg Capsule 100 MG ORAL Q12H, #20 CAP 0 Refills Prov: Tim Rockwell 09/04/17 Patient Instructions: Urethritis, Adult Tim Rockwell September 04, 2017 04:18
[2017-09-04 04:20] VITALS: BP 110/69
[2017-09-04 04:30] VITALS: BP 110/69
== END 2017-09-04 04:30 | disposition home or self-care (01) ==
LOC: EMR 04:28
DX: N34.2 Other urethritis (principal)
CPT/HCPCS: 96372; 99283; J0696

== ENCOUNTER 2018-08-09 19:14 | Emergency (ER) | payer MEDICAID ==
[~2018-08-09] VITALS: Ht 180.3 cm; Wt 79.4 kg
[2018-08-09 19:33] VITALS: BP 132/72
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
[2018-08-09] MEDS ORDERED: IBUPROFEN600 MG ORAL (20:43)
[2018-08-09 20:49] VITALS: BP 132/72
--- NOTE | 2018-08-10 04:20 | NUR ---
ER DISCHARGE NOTE: Patient is cleared to be discharged per Dr. Arreaga. X-ray done, no fracture was found at this time. Pain meds given as ordered. Pt is A/O x 4 on room air with stable vital signs. Pt was given D/C and prescription instructions and was able to verbalize understanding. Pt's ID band removed. Pt is able to ambulate with steady gait and took all belongings.
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
== END 2018-08-09 20:49 | disposition home or self-care (01) ==
LOC: EMR 19:50
DX: S39.012A Strain of muscle, fascia and tendon of lower back, initial encounter (principal); V43.62XA Car passenger injured in collision with other type car in traffic accident, initial encounter; Y92.410 Unspecified street and highway as the place of occurrence of the external cause
CPT/HCPCS: 72020; 99283

== ENCOUNTER 2019-06-03 06:17 | Emergency (ER) | payer MEDICAID ==
[~2019-06-03] VITALS: Ht 180.3 cm; Wt 79.4 kg
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
[2019-06-03] MEDS ORDERED: Ketorolac 30mg Inj IV ONE (06:45)
[2019-06-03] MEDS ORDERED: Morphine Sulfate 4mg/ml Inj (IV USE ONLY) IVP ONE (06:45)
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
[2019-06-03 07:15] LABS: BASOPHILS % (AUTO) 1.5 % (0.0-2.0); EOSINOPHILS % (AUTO) 4.7 % (0.0-3.0); HEMOGLOBIN 12.3 G/DL (14.2-18.0); LYMPHOCYTES % (AUTO) 33.6 % (20.0-45.0); MEAN CORPUSCULAR VOLUME 89 FL (80-99); MONOCYTES % (AUTO) 8.3 % (1.0-10.0); NEUTROPHILS % (AUTO) 51.9 % (45.0-75.0); PLATELET COUNT 440 K/UL (150-450); RED BLOOD COUNT 3.93 M/UL (4.70-6.10); RED CELL DISTRIBUTION WIDTH 13.7 % (11.6-14.8); WHITE BLOOD COUNT 7.2 K/UL (4.8-10.8)
[2019-06-03 07:17] LABS: ANION GAP 10 mmol/L (5-15); BLOOD UREA NITROGEN 10 mg/dL (7-18); CARBON DIOXIDE 25 MMOL/L (21-32); CHLORIDE 106 MMOL/L (98-107); CREATININE 0.9 MG/DL (0.55-1.30); POTASSIUM 3.8 MMOL/L (3.5-5.1); SODIUM 141 MMOL/L (136-145)
--- NOTE | 2019-06-03 07:21 | NUR ---
ED Nurse Note: X-ray on bedside
[2019-06-03 07:22] LABS: ALANINE AMINOTRANSFERASE 62 U/L (12-78); ALBUMIN 3.8 G/DL (3.4-5.0); ALBUMIN/GLOBULIN RATIO 1.1 (1.0-2.7); ALKALINE PHOSPHATASE 98 U/L (46-116); ASPARTATE AMINO TRANSFERASE 30 U/L (15-37); BILIRUBIN,TOTAL 0.7 MG/DL (0.2-1.0); CREATINE KINASE 83 U/L (26-308)
[2019-06-03] MEDS ORDERED: NORCO 5-325 TA1 EACH ORAL (07:26)
--- NOTE | 2019-06-03 07:27 | NUR ---
ED Nurse Note: X-ray done.
[2019-06-03 08:03] VITALS: BP 135/84
--- NOTE | 2019-06-03 08:03 | NUR ---
ER DISCHARGE NOTE: Pt is cleared to be discharged per ERMD, pt is AOx4, on RA, with VSS. pt was given dc and prescription instructions, pt was able to verbalize understanding, pt id band and iv site removed without complications. pt is able to ambulate with steady gait. pt took all belongings.
--- NOTE | 2019-06-03 08:36 | Diagnostic Imaging Report ---
EXAM: XR Left Femur, 2 Views CLINICAL HISTORY: PAIN TECHNIQUE: Frontal and lateral views of the left femur. COMPARISON: No relevant prior studies available. FINDINGS: Bones/joints: Femoral intramedullary jessa through a subacute mid femoral fracture. Fracture is in alignment with a slightly displaced fracture fragment. Soft tissues: Surgical lv proximal, mid and distal lateral thigh. IMPRESSION: Femoral intramedullary jessa through a subacute mid femoral fracture. Fracture is in alignment with a slightly displaced fracture fragment.
--- NOTE | 2019-06-03 08:38 | Diagnostic Imaging Report ---
EXAM: XR Left Knee, 3 Views CLINICAL HISTORY: PAIN TECHNIQUE: Three views of the left knee. COMPARISON: No relevant prior studies available. FINDINGS: Bones/joints: Mid femoral diaphyseal fracture in anatomic alignment with small distracted bony fragment, not fully visualized. Femoral intramedullary jessa with screws through the distal aspect at the knee. Small suprapatellar joint effusion. No acute fracture. Knee is in anatomic alignment. Soft tissues: Soft tissue swelling at the knee. Medial, lateral and anterior knee soft tissue lv. IMPRESSION: 1. Mid femoral diaphyseal fracture in anatomic alignment with small distracted bony fragment, not fully visualized. 2. Small suprapatellar joint effusion. 3. Recent postoperative changes with lv and soft tissue swelling.
== END 2019-06-03 08:03 | disposition home or self-care (01) ==
LOC: EMR 06:30
DX: G89.18 Other acute postprocedural pain (principal); Z79.01 Long term (current) use of anticoagulants
CPT/HCPCS: 36415; 73552; 73564; 80053; 82550; 85025; 96374; 96375; J1885; J2270; Z7502; 99284

== ENCOUNTER 2020-05-26 14:46 | Emergency (ER) | payer MEDICAID ==
[~2020-05-26] VITALS: Ht 180.3 cm; Wt 81.6 kg
[~2020-05-26 14:46] MED LIST changes: +NORCO 5-325 TA1 EACH ORAL
--- NOTE | 2020-05-26 15:09 | NUR ---
not in waiting room
[2020-05-26 15:15] VITALS: BP 119/71
--- NOTE | 2020-05-26 15:18 | NUR ---
Nurse Note: Pt walked in c/o painful urination for one week. Pt stated his partner tested postitve for chlamydia and wants to be checked out. Urine sample provided.
--- NOTE | 2020-05-26 15:42 | Emergency Room Report ---
History of Present Illness General Chief Complaint: Male Urogenital Problems Source: Patient Present Illness HPI 24-year-old male with no significant past medical history reports to the emergency department requesting treatment for STD. Patient reports that he was notified by his partner that she tested positive for chlamydia and gonorrhea and is requesting treatment for this. Patient reports for 1 week he has been having 4/10 dysuria. Patient reports he just received the news of the positive test today. Patient denies fevers or chills. Abdominal pain or tenderness, nausea, vomiting, swollen tender lymph nodes or joint pain. Patient denies penile discharge. He denies swelling of the testicles or pain. No other aggravating or relieving factors. Allergies: Coded Allergies: No Known Allergies (Unverified , 08/09/18) COVID-19 Screening Contact w/high risk pt: No Experienced COVID-19 symptoms?: No COVID-19 Testing performed BENZENE WORKER: No Patient History Past Medical History: see triage record Past Surgical History: none Pertinent Family History: none Reviewed Nursing Documentation: PMH: Agreed; PSxH: Agreed Nursing Documentation-PMH Past Medical History: No Stated History Review of Systems All Other Systems: negative except mentioned in HPI Physical Exam Vital Signs Date Time Temp Pulse Resp B/P (MAP) Pulse Ox O2 Delivery O2 Flow Rate FiO2 05/26/20 15:11 98.4 61 16 119/71 (87) 98 Room Air Sp02 EP Interpretation: reviewed, normal General Appearance: no apparent distress, alert, GCS 15, non-toxic Head: normocephalic, atraumatic Eyes: bilateral eye normal inspection, bilateral eye PERRL ENT: hearing grossly normal, normal voice Neck: full range of motion Respiratory: lungs clear, normal breath sounds, speaking full sentences Cardiovascular #1: regular rate, rhythm Gastrointestinal: normal bowel sounds, non tender, soft Rectal: deferred Genitourinary: normal inspection, no CVA tenderness, deferred - genital exam deferred Musculoskeletal: back normal, normal range of motion, gait/station normal, non- tender Neurologic: alert, motor strength/tone normal, oriented x3, sensory intact, responsive, speech normal Psychiatric: judgement/insight normal Skin: no rash, normal color Lymphatic: no adenopathy Medical Decision Making PA Attestation Dr. Johnston Is my supervising Physician whom patient management has been discussed with. Diagnostic Impression: Primary Impression: Urethritis Additional Impression: Contact with or exposure to venereal diseases ER Course 24-year-old male with no significant past medical history reports to the em ergency department requesting treatment for STD. Patient reports that he was notified by his partner that she tested positive for chlamydia and gonorrhea and is requesting treatment for this. Patient reports for 1 week he has been having 4/10 dysuria. Patient reports he just received the news of the positive test today. Patient denies fevers or chills. Abdominal pain or tenderness, nausea, vomiting, swollen tender lymph nodes or joint pain. Patient denies penile discharge. He denies swelling of the testicles or pain. No other aggravating or relieving factors. Ddx considered but are not limited to UTi , Urethritis, LGV, STI, Stone, Cystitis, prostatitis Vital signs: are WNL, pt. is afebrile H&PE are most consistent with Urethritis ORDERS: - Pt. will be treated clinically ED INTERVENTIONS: -500mg Rocephin IM DISCHARGE: At this time pt. is stable for d/c to home. Will provide printed patient care instructions, and any necessary prescriptions. Care plan and follow up instructions have been discussed with the patient prior to discharge. Last Vital Signs Date Time Temp Pulse Resp B/P (MAP) Pulse Ox O2 Delivery O2 Flow Rate FiO2 05/26/20 15:15 98.4 61 16 119/71 98 Room Air Disposition: HOME, SELF-CARE Condition: Stable Scripts Doxycycline Monohydrate* (DOXYCYCLINE MONOHYDRATE*) 100 Mg Capsule 100 MG ORAL TWICE A DAY for 7 Days, #14 CAP 0 Refills Prov: Brittani Moeller 05/26/20 Referrals: [facility] (PCP) Patient Instructions: Urethritis, Adult Additional Instructions: Take medications as directed. Follow up with a Primary Care Provider in 3-5 days, even if your symptoms have resolved. Return sooner to ED if new symptoms occur, or current symptoms become worse. - Please note that this Emergency Department Report was dictated using Altiostar Networksoperator and truck driver technology software, occasionally this can lead to erroneous entry secondary to interpretation by the dictation equipment. Brittani Moeller May 26, 2020 15:42
[2020-05-26] MEDS ORDERED: DOXYCYCLINE MO100 MG ORAL (15:43)
[2020-05-26] MEDS ORDERED: cefTRIAXone 500mg Inj IM ONE (15:45)
[2020-05-26] MEDS ORDERED: Lidocaine 1% MPF 10mg/ml 5ml INJ ONE (15:45)
[2020-05-26 16:05] VITALS: BP 119/71
--- NOTE | 2020-05-26 16:05 | NUR ---
ED Nurse Note: Pt cleared by health care Provider for discharge. DC instructions/prescription was given and explained to pt and verbalized understanding of teachings. Instructed pt to follow up with PCP within one week. All medical deviecs such as ID band removed. Pt is AAO x4, ambulatory and left with all personal belongings.
== END 2020-05-26 16:05 | disposition home or self-care (01) ==
LOC: EMR 15:23
DX: N34.2 Other urethritis (principal); Z20.2 Contact with and (suspected) exposure to infections with a predominantly sexual mode of transmission
CPT/HCPCS: 96372; J0696; Z7502; 99283